=== PATIENT | male | born 1965 | race Caucasian/White ===

== ENCOUNTER 2021-04-27 07:29 | Outpatient (CLI) | payer OTHER, SELFPAY ==
--- NOTE | 2021-04-27 07:51 | ECHO_ITS ---
Patient Info Name: Kristian Owusu Age: 55 years : 1965 Gender: Male Ht: 67 in Wt: 230 lbs BSA: 2.26 m2 HR: 69 bpm BP: 163 / 101 mmHg Heart Rhythm: Sinus Rhythm Exam Date: 04/27/2021 8:08 AM Exam Location: [facility] Pulmonary Patient Status: Outpatient Admit Date: 04/27/2021 Staff Ordering Physician: Lewis Overton PA-C Destination Imagination Coordinator: Christi Christian RDCS Attending Provider: Lewis Overton PA-C Referring Physician: Brooklynn WYNN; Exam Type: CA echo doppler color flow Study Info Indications R60.0 - Localized edema Complete two-dimensional, color flow and Doppler transthoracic echocardiogram is performed. Summary 1. Complete two-dimensional, color flow and Doppler transthoracic echocardiogram is performed. 2. Left ventricular chamber dimension is normal. 3. Left ventricular systolic function is normal, estimated at 60-65%. 4. The left ventricular diastolic function is abnormal. 5. E/e' 11 is mildly elevated. 6. There is mild aortic valve sclerosis. 7. No pulmonary hypertension, estimated pulmonary arterial systolic pressure is 31 mmHg. Left Ventricle E/e' 11 is mildly elevated. Left ventricular chamber dimension is normal. Left ventricular systolic function is normal, estimated at 60-65%. The left ventricular diastolic function is abnormal. Right Ventricle Right ventricular systolic function is normal and with normal TAPSE 2.0 cm. Right ventricular chamber dimension is normal. Left Atria Left atrial chamber dimension is normal. Right Atria Right atrial chamber dimension is normal. Aortic Valve The aortic valve is trileaflet. There is mild aortic valve sclerosis. There is no aortic valve stenosis. There is no aortic valve regurgitation. Pulmonic Valve There is no pulmonic regurgitation. Mitral Valve There is no mitral valve stenosis. There is no mitral valve regurgitation. Tricuspid Valve There is no tricuspid valve regurgitation. No pulmonary hypertension, estimated pulmonary arterial systolic pressure is 31 mmHg. Pericardium/Pleural There is no pericardial effusion. Inferior Vena Cava Normal inferior vena cava with >50% collapse upon inspiration consistent with normal right atrial pressure, 5 mmHg. Aorta The aortic root size at the sinus of Valsalva is normal. Left Ventricular Outflow Tract Name Value Normal LVOT 2D LVOT Diameter 2.1 cm LVOT Doppler LVOT Peak Gradient 4 mmHg LVOT Mean Gradient 2 mmHg LVOT VTI 23 cm LVOT VTI/AV VTI Ratio 0.8 LVOT Stroke Volume 77 ml LVOT CO 4.5 l/min LVOT CI 2.0 l/min/m2 Pulmonic Valve Name Value Normal RVOT Doppler RVOT Peak Gradient
--- NOTE | 2021-04-27 07:52 | EST_ITS ---
Patient Info Name: Kristian Owusu Age: 55 years : 1965 Gender: Male Ht: 68 in Wt: 230 lbs BSA: 2.28 m2 HR: 58 bpm BP: 144 / 81 mmHg Heart Rhythm: Sinus Rhythm Exam Date: 04/27/2021 9:04 AM Exam Location: [facility] Stress Patient Status: Outpatient Admit Date: 04/27/2021 Staff Ordering Physician: Lewis Overton PA-C Attending Provider: Lewis Overton PA-C Exercise Technologist: Niki oCrtez CT Exercise Physician: Sonny Rodgers DO Exam Type: CA stress test treadmill Study Info An exercise stress test was performed. Summary 1. 1. Negative Nir exercise stress test for ischemic ST changes by ECG criteria. 2. 2. Reduced functional capacity, achieving 7 METs of workload. 3. 3. Baseline hypertension. 4. 4. Appropriate HR response to exercise. 5. 5. Appropriate HR recovery at 1 minute post exercise. 6. 6. No imaging with stress testing. 7. 7. Patient informed of the above results. Protocol: Nir Stress ECG Details Stage: REST Duration (min): 2 min : 51 sec Speed (mph): 0.0 Grade (%): 0 HR (bpm): 62 SBP (mmHg): 144 DBP (mmHg): 81 METS: --- Stage: REST Duration (min): 7 min : 20 sec Speed (mph): 0.0 Grade (%): 0 HR (bpm): 74 SBP (mmHg): 144 DBP (mmHg): 81 METS: --- Stage: STAGE 1 Duration (min): 1 min : 0 sec Speed (mph): 1.7 Grade (%): 10 HR (bpm): 109 SBP (mmHg): 144 DBP (mmHg): 81 METS: --- Stage: STAGE 1 Duration (min): 2 min : 0 sec Speed (mph): 1.7 Grade (%): 10 HR (bpm): 116 SBP (mmHg): 144 DBP (mmHg): 81 METS: --- Stage: STAGE 1 Duration (min): 3 min : 0 sec Speed (mph): 1.7 Grade (%): 10 HR (bpm): --- SBP (mmHg): 193 DBP (mmHg): 108 METS: --- Stage: STAGE 2 Duration (min): 1 min : 0 sec Speed (mph): 2.5 Grade (%): 12 HR (bpm): 135 SBP (mmHg): 193 DBP (mmHg): 108 METS: --- Stage: STAGE 2 Duration (min): 2 min : 0 sec Speed (mph): 2.5 Grade (%): 12 HR (bpm): 140 SBP (mmHg): 212 DBP (mmHg): 77 METS: --- Stage: STAGE 2 Duration (min): 2 min : 59 sec Speed (mph): 3.4 Grade (%): 14 HR (bpm): 148 SBP (mmHg): 212 DBP (mmHg): 77 METS: --- Stage: RECOVERY Duration (min): 1 min : 0 sec Speed (mph): 0.0 Grade (%): 0 HR (bpm): 120 SBP (mmHg): 186 DBP (mmHg): 76 METS: --- Stage: RECOVERY Duration (min): 2 min : 0 sec Speed (mph): 0.0 Grade (%): 0 HR (bpm): 99 SBP (mmHg): 186 DBP (mmHg): 76 METS: --- Stage: RECOVERY Duration (min): 3 min : 0 sec Speed (mph): 0.0 Grade (%): 0 HR (bpm): 103 SBP (mmHg): 175 DBP (mmHg): 78 METS: --- Stage: RECOVERY Duration (min): 3 min : 7 sec Speed (mph): 0.0 Grade (%): 0 HR (bpm): 101 SBP (mmHg): 175 DBP (mmHg): 78 METS: --- Rest HR: 74 bpm Peak HR: 148 bpm
== END 2021-04-27 07:30 | disposition home or self-care (01) ==
PROVIDERS: PCP Internal Medicine; Visit Provider Physician Assistant
DX: R60.0 Localized edema (principal); I35.8 Other nonrheumatic aortic valve disorders
CPT/HCPCS: 93017; 93306

== ENCOUNTER 2021-05-08 02:49 | Day surgery (SDC) | payer OTHER, SELFPAY ==
[2021-04-24 13:18] VITALS: BMI 36.1
--- NOTE | 2021-05-07 13:57 | PM.HPGS ---
History of Present Illness History of Present Illness Consent: Risks, benefits, and alternatives have been discussed and questions answered. Patient agrees to proceed with procedure. Chief complaint: positive cologuard Narrative: Kristian Owusu is a 55 year old male Referred for colon cancer screening. Recent Cologuard test was done that was positive Review of Systems Review of Systems: All systems reviewed & are unremarkable except as noted in HPI and below PMFSH Past Medical History Medical History Anxiety disorder, unspecified Dysphagia Obesity (BMI 30-39.9) Family History Family History Father Family history of diabetes mellitus in first degree relative Patient's father is Sibling Malignant neoplasm of prostate Social History Social History Smoking status: Never smoker Second hand tobacco smoke exposure: No Alcohol intake: current Substance use: never Living arrangements: with family Spiritual care concerns: No Meds Home Medications and Allergies Home Medications Medication Instructions Recorded Confirmed Type valacyclovir 1 gram tablet 2,000 mg PO .twice #4 tablet 02/23/21 05/08/21 Rx clonazepam 1 mg tablet 1 mg PO BID PRN #30 tablet 03/30/21 05/08/21 Rx naproxen 500 mg PO BID PRN 04/24/21 05/08/21 History Allergies Allergy/AdvReac Type Severity Reaction Status Date / Time No Known Allergies Allergy Mild Verified 05/08/21 09:32 Exam Resp: Auscultation: clear to auscultation bilaterally Cardio: Rate: regular rate Rhythm: regular rhythm GI: GI Palp: Yes Soft to palpation and No Tenderness to palpation present (GI) Assessment and Plan Assessment and plan (1) Colon cancer screening: Code(s): Z12.11 - Encounter for screening for malignant neoplasm of colon Status: Acute Assessment and Plan: Colonoscopy with possible biopsy or polypectomy or cautery or injection of substances.
[2021-05-08] MEDS: LACTATED RINGERS 1,000 ML 150 ML IV CONT (09:43)
--- NOTE | 2021-05-08 10:04 | WPDANESEPPF ---
Anes - Initial Pre Proc Eval Procedure: Operation Date: 05/08/21 10:30 Proposed Procedures p Colonoscopy - Coy Israel MD Date/Time: 05/08/21 10:04 Surgeon: Coy Israel MD Pre Op Diagnosis: positive cologuard Patient Data Age: 55 Gender: M Height: 1.7 m Weight: 104.5 kg Allergies Allergy/AdvReac Type Severity Reaction Status Date / Time No Known Allergies Allergy Mild Verified 05/08/21 09:32 Home Medications Medication Instructions Recorded Confirmed Type valacyclovir 1 gram tablet 2,000 mg PO .twice #4 tablet 02/23/21 05/08/21 Rx clonazepam 1 mg tablet 1 mg PO BID PRN #30 tablet 03/30/21 05/08/21 Rx naproxen 500 mg PO BID PRN 04/24/21 05/08/21 History Patient hx anesthesia problems: none Family hx anesthesia problems: none Results Review: All pre-operative results and documents have been reviewed as part of the pre-operative evaluation. REPLACED BY [facility] Past Medical History Medical History (Updated 05/08/21 @ 09:58 by Cuco Mortensen MD) Anxiety disorder, unspecified Dysphagia Obesity (BMI 30-39.9) Family History Family History Father Family history of diabetes mellitus in first degree relative Patient's father is Sibling Malignant neoplasm of prostate Social History Social History Smoking status: Never smoker Second hand tobacco smoke exposure: No Alcohol intake: current Substance use: never Living arrangements: with family Spiritual care concerns: No Anes - Eval Final PreProcedure Day of Procedure 05/08/21 10:04 Patient weight: obese Heart: regular rate and rhythm Lungs: clear to auscultation Airway: Mallampati scale class II Neurological: alert and oriented Last oral intake: >/= 8 hours ASA classification: III Emergent: no Anesthetic plan: proceed Anesthesia type and monitoring: general GIVS and standard monitoring Results Review: All pre-operative results and documents have been reviewed as part of the pre-operative evaluation. Informed Consent: The patient's anesthetic plan and its attendant risks and benefits were discussed with the patient/family/POA. Questions were solicited and answers provided to the satisfaction of the patient/family/POA.
[2021-05-08 10:35] VITALS: BP 127/84; PULSE 75; RESP 23; O2SAT 94
[2021-05-08 10:45] VITALS: BP 134/83; PULSE 69; RESP 24; O2SAT 100
[2021-05-08 10:55] VITALS: BP 146/91; PULSE 68; RESP 23; O2SAT 100
== END 2021-05-08 11:25 | disposition home or self-care (01) ==
PROVIDERS: PCP Internal Medicine; Visit Provider Internal Medicine Gastroenterology
PROC: 0DJD8ZZ Inspection of Lower Intestinal Tract, Via Natural or Artificial Opening Endoscopic (ICD-10-PCS; CPT 45378; principal; 2021-05-08 10:30)
DX: Z12.11 Encounter for screening for malignant neoplasm of colon (principal); D12.5 Benign neoplasm of sigmoid colon; R19.5 Other fecal abnormalities; F41.9 Anxiety disorder, unspecified; E66.9 Obesity, unspecified; Z68.36 Body mass index [BMI] 36.0-36.9, adult
CPT/HCPCS: 45385; 88305; J2704; J7120